=== PATIENT | male | born 1995 | race Hispanic/Latino ===

== ENCOUNTER 2017-05-11 12:13 | Outpatient (CLI) | payer OTHER ==
[~2017-05-11] VITALS: Ht 165.1 cm; Wt 81.6 kg
[~2017-05-11 12:13] MED LIST: CELE1CAP4 PO; FISH1000 PO; HYDR-643 PO; LIDO5TD TOP; NORT10CA2 PO; PRAZ1CAP PO; RIZA5TAB3 PO; TRAZO50TA PO; VENL75CA2 PO; VITA100066 PO
[2017-05-11] MEDS ORDERED: NS 1,000 ML IV ONE (12:30)
[2017-05-11] MEDS ORDERED: PROPOFOL 200 MG/20 ML VIAL As Ordered ONE ×2 (12:57→14:17)
[2017-05-11] MEDS ORDERED: LIDOCAINE 2% INJ 100 MG/5 ML SDV (FOR ANES.) As Ordered ONE (12:57)
--- NOTE | 2017-05-11 14:35 | ROOR ---
Patient Name: Doug Colon Procedure Date: 05/11/2017 2:04 PM Date of : 1995 Age: 21 Room: [facility] Gender: Male Note Status: Finalized Procedure: Colonoscopy Indications: Hematochezia Providers: Romeo Tse MD Referring MD: Katherine Chowdhury Requesting Provider: Medicines: Monitored Anesthesia Care Complications: No immediate complications. Procedure: Pre-Anesthesia Assessment: - Prior to the procedure, a History and Physical was performed, and patient medications and allergies were reviewed. The patient is competent. The risks and benefits of the procedure and the sedation options and risks were discussed with the patient. All questions were answered and informed consent was obtained. Patient identification and proposed procedure were verified by the physician, the nurse and the documentation spec in the procedure room. Mental Status Examination: alert and oriented. Airway Examination: normal oropharyngeal airway and neck mobility. Respiratory Examination: clear to auscultation. CV Examination: normal. Prophylactic Antibiotics: The patient does not require prophylactic antibiotics. Prior Anticoagulants: The patient has taken no previous anticoagulant or antiplatelet agents. ASA Grade Assessment: II - A patient with mild systemic disease. After reviewing the risks and benefits, the patient was deemed in satisfactory condition to undergo the procedure. The anesthesia plan was to use monitored anesthesia care (MAC). Immediately prior to administration of medications, the patient was re-assessed for adequacy to receive sedatives. The heart rate, respiratory rate, oxygen saturations, blood pressure, adequacy of pulmonary ventilation, and response to care were monitored throughout the procedure. The physical status of the patient was re-assessed after the procedure. The Colonoscope was introduced through the anus and advanced to the terminal ileum, with identification of the appendiceal orifice and IC valve. The colonoscopy was performed without difficulty. The patient tolerated the procedure well. The quality of the bowel preparation was good. The terminal ileum, ileocecal valve, appendiceal orifice, and rectum were photographed. Scope insertion time was 3 minutes. Scope withdrawal time was 8 minutes. The total duration of the procedure was 11 minutes. Findings: The perianal and digital rectal examinations were normal. Non-bleeding external and internal hemorrhoids were found during retroflexion. The hemorrhoids were medium-sized. No other significant abnormalities were identified in a careful examination of the remainder of the colon. The terminal ileum appeared normal. Impression: - Non-bleeding external and internal hemorrhoids. - The examined portion of the ileum was normal. - No specimens collected. Recommendation: - Patient has a contact number available for emergencies. The signs and symptoms of potential delayed complications were discussed with the patient. Return to normal activities tomorrow. Written discharge instructions were provided to the patient. - Resume previous diet. - Continue present medications. - Preparation H ointment: Apply externally daily for 5 days. - Repeat colonoscopy at age 48 for screening purposes. - Return to GI clinic for screening colonoscopy at age 48 or sooner if any new symptoms. - Return to primary care physician. Romeo Tse MD Romeo Tse MD 05/11/2017 2:34:24 PM This report has been signed electronically. Number of Addenda: 0 Note Initiated On: 05/11/2017 2:04 PM Estimated Blood Loss: Estimated blood loss: none.
[2017-05-11 14:55] VITALS: BP 118/60
== END 2017-05-11 15:03 | disposition home or self-care (01) ==
LOC: M OPP 12:13
PROVIDERS: ATTEND Internal Medicine Gastroenterology
DX: K92.1 Melena (principal); K64.8 Other hemorrhoids; K64.4 Residual hemorrhoidal skin tags; F32.9 Major depressive disorder, single episode, unspecified; G43.909 Migraine, unspecified, not intractable, without status migrainosus; F43.10 Post-traumatic stress disorder, unspecified; Z87.820 Personal history of traumatic brain injury; Z79.899 Other long term (current) drug therapy